=== PATIENT | male | born 1955 | race Caucasian/White ===

== ENCOUNTER 2018-06-18 08:50 | Outpatient (CLI) | payer MEDICARE ==
--- NOTE | 2018-06-19 17:12 | Vascular Lab Report ---
Duplex Scan of the Abdominal Aorta Reason for exam: Abdominal aortic aneurysm Comments: The study is somewhat technically limited due to overlying bowel gas and body habitus. The patient was not n.p.o. prior to the exam. The aorta is patent with [id number]-ow-gmayecpe atherosclerotic change. The maximum diameter of the infrarenal abdominal aortic aneurysm is 2.9 cm. 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 Flow velocities throughout the aorta are within normal limits. There are mildly elevated velocities in the proximal common iliac arteries bilaterally. No significant plaque seen in the common iliac arteries bilaterally. The celiac artery is patent with normal flow velocities. The superior mesenteric artery is patent with normal flow velocities. Impression: Maximum diameter of the infrarenal abdominal aorta is 2.9 cm. This is consistent with mild ectasia. Recommend followup duplex examination in one year.
== END 2018-06-18 08:51 | disposition home or self-care (01) ==
LOC: US 08:50
PROVIDERS: ATTEND Internal Medicine
DX: I71.4 Abdominal aortic aneurysm, without rupture (principal)
CPT/HCPCS: 93979

== ENCOUNTER 2018-10-31 06:12 | Day surgery (SDC) | payer MEDICARE, OTHER ==
[~2018-10-31 06:12] MED LIST: ANCEF/STERILE WATER 2 GM/20 ML 2 GM/20 ML SYRINGE IV NR; NACL 0.9% 1000 ML 1,000 ML IV SCH; NEURONTIN PO SCH
[2018-10-31] MEDS ORDERED: VERSED ONE ×2 (07:09→07:57)
[2018-10-31] MEDS ORDERED: SUBLIMAZE ONE ×2 (07:09→07:57)
[2018-10-31] MEDS ORDERED: DIPRIVAN 10 MG/ML IV ONE (07:09)
[2018-10-31] MEDS ORDERED: ZEMURON IV ONE (07:15)
[2018-10-31] MEDS ORDERED: ROBINUL ONE ×3 (07:15→09:13)
[2018-10-31 07:16] LABS: Basophils % (Auto) 0.9 % (0.0-1.8); Eosinophils # (Auto) 0.2 K/mm3 (0.0-0.4); Hemoglobin 14.6 gm/dl (11.8-15.2); Lymphocytes # (Auto) 1.4 K/mm3 (1.2-5.4); Lymphocytes % (Auto) 35.3 % (13.4-35.0); Mean Corpuscular HGB Conc 34 % (32-34); Mean Corpuscular Volume 94 fl (84-94); Monocytes # (Auto) 0.6 K/mm3 (0.0-0.8); Monocytes % (Auto) 14.2 % (0.0-7.3); Platelet Count 205 K/mm3 (140-440); Red Blood Count 4.58 M/mm3 (3.65-5.03)
[2018-10-31] MEDS ORDERED: QUELICIN ONE (07:16)
[2018-10-31 07:30] LABS: BUN/Creatinine Ratio 30; Blood Urea Nitrogen 15 mg/dL (9-20); Calcium 9.1 mg/dL (8.4-10.2); Hemolysis Index 11
[2018-10-31] MEDS ORDERED: TYLENOL PO NR ×2 (07:30→08:30)
[2018-10-31] MEDS ORDERED: TYLENOL PO STA (07:43)
[2018-10-31] MEDS ORDERED: ADRENALINE P/F ONE (07:54)
[2018-10-31] MEDS ORDERED: Vasostrict ONE (07:55)
[2018-10-31] MEDS ORDERED: MARCAINE 0.25% INFILTRATI ONE ×2 (07:56→07:58)
[2018-10-31] MEDS ORDERED: XYLOCAINE 1% 20 mL ONE (07:57)
[2018-10-31] MEDS ORDERED: DECADRON ONE ×2 (07:57→09:11)
[2018-10-31] MEDS ORDERED: XYLOCAINE 1%/ EPI 1:100,000 INFILTRATI ONE (07:59)
[2018-10-31] MEDS ORDERED: TYLENOL ONE (08:10)
[2018-10-31] MEDS ORDERED: NACL 0.9% IR ONE (09:00)
[2018-10-31] MEDS ORDERED: ANCEF/STERILE WATER 2 GM/20 ML IV NR (09:00)
[2018-10-31] MEDS ORDERED: NEO SYNEPHRINE/NS Syringe(OR USE) IV ONE (09:11)
[2018-10-31] MEDS ORDERED: ZOFRAN ONE (09:11)
[2018-10-31] MEDS ORDERED: BLOXIVERZ ONE (09:12)
[2018-10-31] MEDS ORDERED: XYLOCAINE MPF 2% ONE (09:41)
[2018-10-31] MEDS ORDERED: TORADOL ONE (10:06)
[2018-10-31] MEDS ORDERED: SUBLIMAZE IV PRN (10:09)
[2018-10-31] MEDS ORDERED: ZOFRAN IV PRN (10:09)
[2018-10-31] MEDS ORDERED: DILAUDID IV PRN (10:09)
--- NOTE | 2018-10-31 10:21 | Anesthesia Consultation ---
Anesthesia Consult and Med Hx Date of service: 10/31/18 - Airway Anesthetic Teeth Evaluation: Poor (missing most of bottom teeth except for front 6.) ROM Head & Neck: Adequate Mental/Hyoid Distance: Adequate Mallampati Class: Class III (macroglossia) - Pulmonary Exam CTA: Yes - Cardiac Exam Cardiac Exam: RRR - Pre-Operative Health Status ASA Pre-Surgery Classification: ASA3 Proposed Anesthetic Plan: General Nerve Block: unilateral TAP block - Pre-Anesthesia Comment Pre-Anesthesia Comments: no previous problems with GA - Pulmonary Hx Smoking: Yes (FORMER QUIT 40 YEARS AGO) - Cardiovascular System Hx Hypertension: Yes (2014) - Central Nervous System Hx Seizures: Yes Hx Psychiatric Problems: Yes - Other Systems Hx Cancer: Yes - Additional Comments Anesthesia Medical History Comments: ASA III 63 y.o.m. with inguinal hernia - GA LMA with TAP block for open inguinal hernia
--- NOTE | 2018-10-31 10:22 | Anesthesia Day of Surgery ---
Anesthesia Day of Surgery - Day of Surgery Patient Examined: Yes Patient H&P Reviewed: Yes Patient is NPO: Yes Beta Blockers: No Alhaji's Test: N/A
--- NOTE | 2018-10-31 10:26 | Short Stay Summary ---
Short Stay Documentation Date of service: 10/31/18 - History H&P: obtained from office - Allergies and Medications Current Medications: Allergies No Known Allergies Allergy (Verified 10/29/18 16:25) Home Medications Medication Instructions Recorded Confirmed Last Taken Type Divalproex Dr [Depakote Dr] 500 mg PO BID 10/29/18 10/31/18 10/31/18 05:00 History FLUoxetine [PROzac] 40 mg PO DAILY 10/29/18 10/31/18 10/31/18 05:00 History Losartan [Cozaar] 100 mg PO QDAY 10/29/18 10/31/18 10/31/18 History Quetiapine Fumarate [Seroquel] 50 mg PO DAILY 10/29/18 10/31/18 10/31/18 05:00 History amLODIPine [Norvasc] 5 mg PO DAILY 10/29/18 10/31/18 10/31/18 History levETIRAcetam [Levetiracetam] 500 mg PO BID 10/29/18 10/31/18 10/31/18 05:00 History Active Medications Acetaminophen (Tylenol) 650 mg PO PREOP NR Stop: 10/31/18 23:59 Last Admin: 10/31/18 09:20 Dose: 650 mg Documented by: Cefazolin Sodium (Ancef/Sterile Water 2 Gm/20 Ml) 2 gm IV PREOP NR Stop: 10/31/18 13:00 Celecoxib (Celebrex) 200 mg PO PREOP NR Stop: 10/31/18 23:59 Last Admin: 10/31/18 08:28 Dose: 200 mg Documented by: Fentanyl (Sublimaze) 50 mcg IV Q5MIN PRN PRN Reason: Pain , Severe (7-10) Gabapentin (Neurontin) 600 mg PO PREOP MAXIMILIANO Last Admin: 10/31/18 07:21 Dose: 600 mg Documented by: Hydromorphone HCl (Dilaudid) 0.25 mg IV Q10MIN PRN PRN Reason: Pain, Moderate (4-6) Sodium Chloride (Nacl 0.9% 1000 Ml) 1,000 mls @ 42 mls/hr IV DIRECT MAXIMILIANO Last Admin: 10/31/18 07:21 Dose: 42 mls/hr Documented by: Ondansetron HCl (Zofran) 4 mg IV ONCE PRN PRN Reason: Nausea And Vomiting - Physical exam General appearance: no acute distress Lungs: Normal air movement Neurological: Normal speech - Brief post op/procedure progress note Date of procedure: 10/31/18 (dictation: [id number]) Pre-op diagnosis: RIH Post-op diagnosis: same Procedure: Open RIH with mesh IVF 1L EBL 10cc Anesthesia: GETA Findings: large indirect hernia sac that was scarred to surrounding tissue and cord. small cord lipoma. weak floor Surgeon: MIKAEL BARRON Estimated blood loss: minimal (10cc) Pathology: none Condition: stable - Hospital course Hospital course: uneventful - Disposition Condition at discharge: Stable Disposition: DC- TO HOME OR SELFCARE Short Stay Discharge Plan Activity: other (no driving until cleared by surgeon) Diet: regular Wound: open to air, keep clean and dry, other (apply ice to right groin for 10-15min/4-5x a day. May shower tomorrow. Pat dry wound.) Special Instructions: no heavy lifting (or strenuous activity for 6 weeks) Follow up with: RAVI ZAMORA [Primary Care Provider] - 7 Days MIKAEL BARRON MD [Staff Physician] - 14 Days Forms: Outpatient Surgery DC Inst. Prescriptions: HYDROcodone/APAP 5-325 [[place] 5/325] 1 each PO Q6HR PRN #40 tablet PRN Reason: Pain , Severe (7-10)
[2018-10-31] MEDS ORDERED: NORCO 5/325 PO PRN (10:41)
[2018-10-31 11:27] VITALS: BP 105/63
--- NOTE | 2018-10-31 17:09 | Operative Report ---
PREOPERATIVE DIAGNOSIS: Chronic right inguinal hernia. POSTOPERATIVE DIAGNOSIS: Chronic right inguinal hernia (indirect). PROCEDURE: Open right inguinal hernia repair with mesh. ATTENDING PHYSICIAN: Yanet Fairbanks MD ANESTHESIA: General. ESTIMATED BLOOD LOSS: 10 mL. FLUIDS: 1 liter. ANESTHESIA: General. FINDINGS: Very large indirect inguinal hernia sac that was densely adhered to the surrounding tissue and cord structures. Small cord lipoma was also identified. Inguinal floor was weak, but no specific hernia was noted there. IMPLANT: Large mesh plug system. DRAINS: None. COMPLICATIONS: Stable, transferred to Recovery Room. INDICATIONS: This is a 63-year-old male who presents for evaluation in the office of a chronic right inguinal hernia that has been present for more than 5 years. It has gotten larger and does occasionally cause him discomfort. The patient is assessed to be a need for open repair as he previously had a laparoscopic prostatectomy procedure that has utilized the preperitoneal space. Procedure, risks, benefits were explained to the patient. Risks included but were not limited to infection, bleeding, pain, injury to surrounding structures, possible recurrence, possible need for further procedures in the future. The patient understood and consented. DESCRIPTION OF PROCEDURE: The patient was brought to the operating room and placed stable in supine position. After adequate general anesthesia was established, the patient was prepped and draped in usual sterile fashion. Antibiotics had been administered prior to start of the case. SCDs were in place. Please note the patient received a ADENIKE block prior to the start of the case. Timeout was called. I marked out the appropriate anatomy in the right inguinal area and then planned a transverse incision along the skin lines over that area. Sharp incision was made. Dissection was carried through the subcutaneous tissue down to Karen's fascia. This was sharply divided until we reached the external oblique aponeurosis. A small incision was made. Aponeurosis was elevated. Underlying contents were pushed down. Aponeurosis opened all the way to the external ring. There was a large mass noted in the inguinal canal, part of it was herniated intra-abdominal contents. This was reduced back by pushing the contents from the scrotum back towards the abdomen. I then was able to get around the mass and cord structures. [place] drain was placed underneath it. Then, with blunt dissection, I pulled apart the cremasteric fibers until identified the sac and then the sac from the surrounding tissue. As mentioned, it was densely scarred to the surrounding structures; therefore took extra time in the dissection to accomplish this. However, finally we were able to separate the sac from the cord structures and surrounding tissue as well as a small cord lipoma. The cord itself had some extra fat to it such that I looked at it carefully at least 3 separate occasions just to make sure that was not a cord lipoma. It appeared as though there were some small vessels in it, so rather than take the chance of causing some ischemic orchitis, I elected to leave it and as they felt they had sufficiently reduced the hernia sac as well as the cord lipoma that was clearly visible. I attached the mesh plug to the cord lipoma as well as the hernia sac in multiple locations. Please note the sac had already been decompressed at this point and so there was no concern of contents being in the sac that could get injured by the stitch and I was able to reduce everything very easily. I checked the underlying floor, it was weak by inserting a finger into the preperitoneal space. I made sure the plug leaves were spread out after I pushed it into the preperitoneal space. Then, I proceeded to lay the patch on the inguinal floor. I secured it to the pubic tubercle with an 0 Ethibond stitch and then I secured the edges of the patch to the shelving edge of the inguinal ligament as well as the conjoined tendon. I brought the 2 ends around the cord. The internal ring was quite large. Therefore, I created a much smaller ring with the patch; however, I did make sure that a hemostat could pass easily through the opening, so as not to constrict the cord structures. The tails were secured together as well as to the underlying muscular tissue. The patch appeared to lay very well. The final appearance looked very good. I pulled the testicle down back into its normal position. We thoroughly irrigated out the area. There was no active bleeding. Everything looked very good. We then closed the external oblique with a running 3-0 Vicryl stitch. The wound was thoroughly irrigated again. We closed the subcutaneous tissue with interrupted 3-0 Vicryl stitches and skin was closed with a running 4-0 Monocryl subcuticular stitch. Skin was cleaned and dried. Dermabond was placed. The patient tolerated procedure well. There were no complications. All counts were correct at the end of the case. I spoke with the at the end of the case. JOB# [id number] MICHAEL/MELISSA WALSHD
== END 2018-10-31 06:13 | disposition home or self-care (01) ==
LOC: OR 06:12
PROVIDERS: ATTEND Surgery
DX: K40.90 Unilateral inguinal hernia, without obstruction or gangrene, not specified as recurrent (principal); D17.6 Benign lipomatous neoplasm of spermatic cord; I10 Essential (primary) hypertension; F32.9 Major depressive disorder, single episode, unspecified; F41.9 Anxiety disorder, unspecified; Z98.890 Other specified postprocedural states; Z85.46 Personal history of malignant neoplasm of prostate; Z79.899 Other long term (current) drug therapy; Z79.01 Long term (current) use of anticoagulants; Z87.891 Personal history of nicotine dependence
CPT/HCPCS: 36415; 49505; 64450; 80048; 85025; A4217; C1781; J0171; J0330; J1100; J1885; J2250; J2370; J2405; J2704; J2710; J3010; J7030

== ENCOUNTER 2019-01-11 08:42 | Outpatient (CLI) | payer MEDICARE ==
[2019-01-11 11:07] LABS: Chol/HDL Ratio 6.15 %
== END 2019-01-11 08:43 | disposition home or self-care (01) ==
LOC: LAB 08:42
PROVIDERS: ATTEND Internal Medicine
DX: E66.09 Other obesity due to excess calories (principal); I10 Essential (primary) hypertension; R73.03 Prediabetes; Z87.891 Personal history of nicotine dependence
CPT/HCPCS: 36415; 80061; 83036

== ENCOUNTER 2019-05-02 08:38 | Outpatient (CLI) | payer MEDICARE ==
[2019-05-02 11:01] LABS: Chol/HDL Ratio 2.81 %
== END 2019-05-02 08:39 | disposition home or self-care (01) ==
LOC: LAB 08:38
PROVIDERS: ATTEND Internal Medicine
DX: E78.5 Hyperlipidemia, unspecified (principal); E11.9 Type 2 diabetes mellitus without complications; I10 Essential (primary) hypertension
CPT/HCPCS: 36415; 80061; 83036

== ENCOUNTER 2019-09-19 10:59 | Outpatient (CLI) | payer MEDICARE ==
--- NOTE | 2019-09-19 11:49 | XRay Report ---
LEFT SHOULDER 3 VIEWS INDICATION: M25.512 PAIN IN LEFT SHOULDER. COMPARISON: None. IMPRESSION: Normal bone mineralization. 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 Minimal osteoarthritic changes are identified at the acromioclavicular joint. No evide nce for fracture, dislocation, ligamentous injury or bone lesion. The soft tissues are unremarkable. Signer Name: Trey Zuluaga Jr, MD Signed: 09/19/2019 11:45 AM Workstation Name: [id number]
[2019-09-19 13:35] LABS: Basophils % (Auto) 0.7 % (0.0-1.8); Eosinophils # (Auto) 0.1 K/mm3 (0.0-0.4); Eosinophils % (Auto) 2.1 % (0.0-4.3); Hematocrit 43.8 % (35.5-45.6); Hemoglobin 15.3 gm/dl (11.8-15.2); Lymphocytes # (Auto) 1.5 K/mm3 (1.2-5.4); Lymphocytes % (Auto) 31.7 % (13.4-35.0); Mean Corpuscular HGB Conc 35 % (32-34); Mean Corpuscular Volume 95 fl (84-94); Monocytes # (Auto) 0.5 K/mm3 (0.0-0.8); Monocytes % (Auto) 11.4 % (0.0-7.3); Platelet Count 231 K/mm3 (140-440); Red Blood Count 4.63 M/mm3 (3.65-5.03); Red Cell Distribution Width 13.9 % (13.2-15.2)
[2019-09-19 13:54] LABS: Alanine Aminotransferase 23 units/L (7-56); Albumin 4.4 g/dL (3.9-5); BUN/Creatinine Ratio 27; Blood Urea Nitrogen 16 mg/dL (9-20); Calcium 9.7 mg/dL (8.4-10.2); Chol/HDL Ratio 4.97 %; HDL Cholesterol 46 mg/dL (40-59); Hemolysis Index 8; LDL Cholesterol,Direct 162 mg/dL (50-130)
[2019-09-19 14:10] LABS: Creatinine,Urine 220.2 mg/dL (0.1-20.0); Microalbumin/Creatinine Ratio 7.2 ug/mg
[2019-09-22 13:57] LABS: Vitamin D, 25-OH, D2 <4 ng/mL
== END 2019-09-19 11:00 | disposition home or self-care (01) ==
LOC: XRAY 10:59
PROVIDERS: ATTEND Internal Medicine
DX: M19.012 Primary osteoarthritis, left shoulder (principal); I10 Essential (primary) hypertension; E11.9 Type 2 diabetes mellitus without complications; E78.5 Hyperlipidemia, unspecified
CPT/HCPCS: 36415; 80053; 80061; 80164; 82043; 82306; 82607; 83036; 84443; 85025

== ENCOUNTER 2019-11-25 15:02 | Outpatient (CLI) | payer MEDICARE ==
--- NOTE | 2019-11-25 15:38 | XRay Report ---
LEFT SHOULDER 3 VIEWS INDICATION: M25.512 PAIN IN LEFT SHOULDER. COMPARISON: 09/19/2019 FINDINGS: No acute skeletal abnormality. Acromioclavicular and glenohumeral degenerative changes are again note d. No soft tissue calcifications. No significant change. IMPRESSION: 1. No acute findings. Signer Name: Nestor Arias MD Signed: 11/25/2019 3:34 PM Workstation Name: [id number]
== END 2019-11-25 15:03 | disposition home or self-care (01) ==
LOC: XRAY 15:02
PROVIDERS: ATTEND Internal Medicine
DX: M17.12 Unilateral primary osteoarthritis, left knee (principal)

== ENCOUNTER 2020-02-17 13:33 | Outpatient (CLI) | payer MEDICARE | END 2020-02-17 13:34 | disposition home or self-care (01) | LOC: MRI 13:33 | PROVIDERS: ATTEND Internal Medicine | DX: M75.112 Incomplete rotator cuff tear or rupture of left shoulder, not specified as traumatic (principal); M77.8 Other enthesopathies, not elsewhere classified; M19.012 Primary osteoarthritis, left shoulder ==